=== PATIENT | female | born 1955 | race Hispanic/Latino ===

== ENCOUNTER 2018-12-27 10:27 | Emergency (ER) | payer SELFPAY ==
[2018-12-27] MEDS ORDERED: HYDROcodone/Acetaminophen 5/325 mg Tablet ONE (11:36)
[2018-12-27] MEDS ORDERED: Morphine 4 MG/ML VIAL ONE (12:52)
--- NOTE | 2018-12-27 13:09 | RAD ---
LEFT SHOULDER TWO VIEWS: HISTORY: Injury with pain. FINDINGS: There is an anterior shoulder dislocation. The AC joint is normally aligned. No definite fracture i s apparent, although the humeral head is not well evaluated. Recommend repeat shoulder views after r eduction. POS: [facility]
--- NOTE | 2018-12-27 13:27 | RAD ---
LEFT SHOULDER 1 VIEW: Date: 12/27/18 HISTORY: Injury from a mechanical fall. Post reduction attempt. COMPARISON: Exam done earlier today, 12/27/18. FINDINGS: The previously noted anterior subcoracoid dislocation has not been reduced. IMPRESSION: Persistent anterior subcoracoid glenohumeral joint dislocation. POS: [facility]
[2018-12-27] MEDS ORDERED: Fentanyl 100 MCG/2 ML VIAL ONE (13:52)
[2018-12-27] MEDS ORDERED: Naloxone HCl 0.4 mg/ml Vial ONE (14:13)
--- NOTE | 2018-12-27 14:33 | RAD ---
LEFT SHOULDER 2 VIEWS: Date: 12/27/18 HISTORY: Post reduction. FINDINGS: Anterior shoulder dislocation persists. AC joint is normally aligned. IMPRESSION: Persistent anterior shoulder dislocation. POS: [facility]
--- NOTE | 2018-12-27 14:49 | RAD ---
2 VIEWS LEFT SHOULDER: Date: 12/27/18 COMPARISON: 12/27/18 HISTORY: Reduction of shoulder dislocation. FINDINGS: 2 views of the left shoulder show interval reduction of the previously seen shoulder dislocation. No fracture is seen. IMPRESSION: Reduction of shoulder dislocation. POS: [facility]
--- NOTE | 2018-12-27 17:38 | CON ---
DATE OF CONSULTATION: 12/27/2018 REQUESTING PHYSICIAN: Dr. Young. PRINCIPAL DIAGNOSIS: Left anterior shoulder dislocation. HISTORY OF PRESENT ILLNESS: The patient is a 63-year-old right-hand dominant lady, who presented to the emergency room earlier on the 27 of December with a complaint of left shoulder pain. She is accompanied by family. They report that she sustained a fall at approximately 8 o'clock in the morning, dislocating her left shoulder. Of note, the patient has a prior history of left shoulder dislocation approximately 5 years ago. Upon presentation in the emergency room, x-rays were obtained, that showed an anterior inferior shoulder dislocation. The patient was sedated with fentanyl. An attempt to closed reduction was performed in the emergency room; however, this proved to be unsuccessful, and as such, Orthopedic consultation requested. PAST MEDICAL HISTORY: Remarkable for; 1. Hypertension. 2. Diabetes. 3. Hyperlipidemia. 4. Hypothyroidism. PAST SURGICAL HISTORY: 1. Left knee surgery. 2. Renal stone. MEDICATIONS: Include; 1. Lisinopril. 2. Omeprazole. 3. Simvastatin. 4. Meloxicam. 5. Metformin. 6. Levothyroxine. 7. Metoprolol. ALLERGIES: NONE KNOWN. SOCIAL HISTORY: The patient denies alcohol, drug use, and has no history of tobacco use. REVIEW OF SYSTEMS: No recent fevers, chills, or sweats. No chest pain or shortness of breath. She denies numbness or tingling in this left upper extremity. PHYSICAL EXAMINATION: VITAL SIGNS: Temperature of 98, heart rate of 88, respiratory rate of 16, blood pressure 177/85. GENERAL: The patient is found to be mildly sedated, sitting up in her [facility] in the emergency room at [facility]. MUSCULOSKELETAL: She is able to wiggle the fingers on her left hand and has normal sensation in the radial, median, ulnar, and axillary distribution. The hand, wrist, and elbow appear atraumatic. The shoulder shows an obvious anterior dislocation clinically with very limited range of motion and pain with any attempts of motion. The contralateral upper extremity is atraumatic. X-RAYS: Pre and post reduction x-rays of the left shoulder show a glenohumeral joint with continued anterior inferior dislocation. PROCEDURE NOTE: The patient was still under the effects of the most recent dose of fentanyl when I arrived at bedside. I applied just gentle longitudinal traction while talking to the patient. This resulted in disimpaction of the humeral head, could be palpated. With relaxation of the traction, the shoulder reduced. She was then placed in a sling and a true AP and transscapular Y x-ray of the shoulder was obtained, that showed anatomic reduction of this extremity. ASSESSMENT: Status post left shoulder dislocation, now with successful reduction in the emergency room. PLAN: The patient will be kept in a sling. I would like her to follow up with our orthopedic shoulder subspecialist for evaluation and to discuss whether any surgical intervention is appropriate given that this has been her 2nd dislocation. She appears comfortable with our discussion and plan. Disposition will be left to the emergency room physician. Job ID: [id number]
--- NOTE | 2018-12-29 13:25 | EKG ---
Test Reason : Blood Pressure : / mmHG Vent. Rate : 082 BPM Atrial Rate : 082 BPM P-R Int : 180 ms QRS Dur : 072 ms QT Int : 366 ms P-R-T Axes : 032 035 071 degrees QTc Int : 427 ms Normal sinus rhythm Normal ECG Confirmed by JULIA Carrillo, SOCRATES ([id number]), loan expeditor VAL MATTHEWS ([id number]) on 12/29/2018 1:24:28 PM Referred By: JULIA Confirmed By:SOCRATES DUMONT M.D.
== END 2018-12-27 14:59 | disposition home or self-care (01) ==
LOC: ERS 10:27
DX: S43.004A Unspecified dislocation of right shoulder joint, initial encounter (principal); I10 Essential (primary) hypertension; E11.9 Type 2 diabetes mellitus without complications; E78.5 Hyperlipidemia, unspecified; E03.9 Hypothyroidism, unspecified; Z79.899 Other long term (current) drug therapy; Z79.84 Long term (current) use of oral hypoglycemic drugs; W18.30XA Fall on same level, unspecified, initial encounter
CPT/HCPCS: 23650; 36416; 93005; 96361; 96374; 96375; J2270; J2310; J3010

== ENCOUNTER 2019-04-19 06:47 | Emergency (ER) | payer OTHER, SELFPAY ==
--- NOTE | 2019-04-19 08:44 | RAD ---
THREE VIEWS LEFT SHOULDER: INDICATION: Dislocation, pain. COMPARISON: 12/27/2018. FINDINGS: There is heterotopic density interposed between the acromion and the humeral head. Humeral head is h igh-riding. There is osteoarthritis. Overall alignment of the shoulder is similar-appearing. IMPRESSION: Grossly stable exam. Heterotopic density, corticated, is interposed between the acromion and the khushi ral head which is high riding. POS: [facility]
== END 2019-04-19 07:28 | disposition home or self-care (01) ==
LOC: ERS 06:47
DX: S43.005A Unspecified dislocation of left shoulder joint, initial encounter (principal); I10 Essential (primary) hypertension; E11.9 Type 2 diabetes mellitus without complications; E78.5 Hyperlipidemia, unspecified; E03.9 Hypothyroidism, unspecified; Z79.899 Other long term (current) drug therapy; Z79.84 Long term (current) use of oral hypoglycemic drugs; X50.9XXA Other and unspecified overexertion or strenuous movements or postures, initial encounter

== ENCOUNTER 2020-09-27 16:41 | Inpatient (IN) | payer SELFPAY ==
[~2020-09-27 16:41] MED LIST: Iopamidol-370 76% 500 ML 1 ML ONE
[2020-09-27 17:59] LABS: #Basophils 0.1 thou/uL (0.0-0.2); #Eosinphils 0.2 thou/uL (0.0-0.7); #Lymphocytes 2.7 thou/uL (1.20-3.40); #Monocytes 1.2 thou/uL (0.11-0.59); #Neutrophils 11.4 thou/uL (1.40-6.50); %Basophils 0.3 % (0.0-1.0); %Eosinophils 1.4 % (0.0-10.0); %Lymphocytes 17.6 % (21.0-51.0); %Monocytes 7.6 % (0.0-10.0); %Neutrophils 73.1 % (42.0-75.0); Hemoglobin 13.1 g/dL (12.0-16.0); Mean Corpuscular HGB CONC 32.5 g/dL (32.0-36.0); Mean Corpuscular Volume 89.3 fL (78.0-98.0); Mean Platelet Volume 8.2 fL (7.4-10.4); Platelet Count 317 thou/uL (130-400); RBC Distribution Width 13.7 % (11.5-14.5); White Blood Cell (WBC) Count 15.6 thou/uL (4.8-10.8)
[2020-09-27 18:14] LABS: Bilirubin Small (Negative); Blood, Urine Trace (Negative); Glucose, Urine (Dipstick) Negative (Negative); Ketone, Urine Trace mg/dL (Negative); Leukocyte Negative (Negative); Nitrite Negative (Negative); Protein, Urine (Dipstick) 30 mg/dL (Neg-Trace); pH, Urine 5.5 (5.0-9.0)
[2020-09-27 18:15] LABS: Clarity Hazy (Clear)
[2020-09-27 18:16] LABS: Specific Gravity, Urine 1.028 (1.002-1.036)
[2020-09-27 18:17] LABS: Bacteria/HPF 2+ HPF (None Seen); RBC/HPF None Seen HPF (0-3); WBC/HPF 0-3 HPF (0-3)
[2020-09-27 18:25] LABS: ALT (SGPT) 27 U/L (8-55); AST (SGOT) 25 U/L (5-34); Albumin 3.7 g/dL (3.4-4.8); Alkaline Phosphatase 128 U/L (40-110); Anion Gap 15 mmol/L (10-20); BUN (Urea Nitrogen) 12 mg/dL (9.8-20.1); Bilirubin, Total 0.4 mg/dL (0.2-1.2); Calc. Creatinine Clearance 0 mL/min (70-130); Calcium 8.4 mg/dL (7.8-10.44); Carbon Dioxide 22 mmol/L (23-31); Chloride 106 mmol/L (98-107); Globulin 4.2 g/dL (2.4-3.5); Glucose 117 mg/dL (80-115); Lipase 26 U/L (8-78); Potassium 3.7 mmol/L (3.5-5.1); Protein, Total 7.9 g/dL (5.8-8.1); Sodium 139 mmol/L (136-145)
[2020-09-27] MEDS ORDERED: Morphine 4 MG/ML VIAL ONE (18:54)
[2020-09-27] MEDS ORDERED: Ondansetron PF 4 MG/2 ML Vial ONE (18:54)
[2020-09-27] MEDS ORDERED: Ondansetron PF 4 MG/2 ML Vial IVP PRN (20:37)
[2020-09-27] MEDS ORDERED: Ondansetron ODT 4 MG TAB PO PRN (20:37)
[2020-09-27] MEDS ORDERED: Acetaminophen 325 MG TAB PO PRN (20:37)
[2020-09-27] MEDS ORDERED: HYDROcodone/Acetaminophen 5/325 mg Tablet PO PRN (20:37)
[2020-09-27] MEDS ORDERED: Morphine 2 MG/ML VIAL SLOW IVP PRN (22:38)
[2020-09-27 23:09] VITALS: BMI 56.7
[2020-09-27] MEDS: Enoxaparin Sodium 40 MG/0.4 ML SYRINGE SC SCH (23:11)
[2020-09-28] MEDS ORDERED: Temazepam 15 MG CAP PO PRN (02:15)
[2020-09-28 07:13] LABS: Anion Gap 18 mmol/L (10-20); BUN (Urea Nitrogen) 11 mg/dL (9.8-20.1); Calc. Creatinine Clearance 159 mL/min (70-130); Calcium 8.4 mg/dL (7.8-10.44); Carbon Dioxide 19 mmol/L (23-31); Chloride 105 mmol/L (98-107); Glucose 119 mg/dL (80-115); Sodium 138 mmol/L (136-145)
[2020-09-28 07:17] LABS: #Eosinphils 0.2 thou/uL (0.0-0.7); #Lymphocytes 2.6 thou/uL (1.20-3.40); #Neutrophils 8.4 thou/uL (1.40-6.50); %Basophils 0.3 % (0.0-1.0); %Eosinophils 1.5 % (0.0-10.0); %Lymphocytes 21.6 % (21.0-51.0); %Monocytes 8.1 % (0.0-10.0); %Neutrophils 68.5 % (42.0-75.0); Hemoglobin 11.8 g/dL (12.0-16.0); Mean Corpuscular HGB CONC 31.4 g/dL (32.0-36.0); Mean Corpuscular Hemoglobin 28.3 pg (27.0-31.0); Mean Corpuscular Volume 89.9 fL (78.0-98.0); Mean Platelet Volume 8.7 fL (7.4-10.4); Platelet Count 301 thou/uL (130-400); RBC Distribution Width 13.8 % (11.5-14.5); Red Blood Cell (RBC) Count 4.18 mill/uL (4.20-5.40); White Blood Cell (WBC) Count 12.2 thou/uL (4.8-10.8)
[2020-09-28] MEDS: Enoxaparin Sodium 40 MG/0.4 ML SYRINGE SC SCH ×2 (08:37→21:11)
[2020-09-28] MEDS ORDERED: Iopamidol-370 76% 500 ML 1 ML ONE (14:43)
[2020-09-28] MEDS: Atorvastatin Calcium 40 MG TAB PO SCH (21:19)
[2020-09-29] MEDS: Levothyroxine Sodium 75 MCG TAB PO SCH (05:21)
[2020-09-29 06:53] LABS: Cardiac Risk 4.1 (Less than 4.5)
[2020-09-29] MEDS: Aspirin Chewable 81 MG TAB PO SCH (07:50)
[2020-09-29] MEDS: Metoprolol Tartrate 25 MG TAB PO SCH ×2 (07:52→20:16)
[2020-09-29] MEDS: Enoxaparin Sodium 40 MG/0.4 ML SYRINGE SC SCH (07:55)
[2020-09-29] MEDS: Enoxaparin Sodium 100 MG/ML SYRINGE SC SCH ×2 (09:36→20:16)
[2020-09-29] MEDS: Simvastatin 10 MG TAB PO SCH (20:15)
[2020-09-29] MEDS: Atorvastatin Calcium 40 MG TAB PO SCH (20:16)
[2020-09-30] MEDS: Metoprolol Tartrate 25 MG TAB PO SCH ×2 (05:58→20:26)
[2020-09-30] MEDS: Levothyroxine Sodium 75 MCG TAB PO SCH (05:58)
[2020-09-30] MEDS ORDERED: PROPOFOL 200 MG/20 ML VIAL ONE (08:07)
[2020-09-30] MEDS ORDERED: Lisinopril 20 MG TAB PO SCH (09:00)
[2020-09-30] MEDS: Aspirin Chewable 81 MG TAB PO SCH (09:49)
[2020-09-30] MEDS: Enoxaparin Sodium 100 MG/ML SYRINGE SC SCH ×2 (09:51→20:27)
[2020-09-30 20:21] VITALS: TEMP 98.5
[2020-09-30] MEDS: Atorvastatin Calcium 40 MG TAB PO SCH (20:26)
[2020-09-30] MEDS: Simvastatin 10 MG TAB PO SCH (20:27)
[2020-09-30 22:37] VITALS: BP 140/82
== END 2020-09-30 22:37 | disposition short-term general hospital (02) | DRG 392 ==
LOC: ERS 16:41 → T4-B 20:28
PROVIDERS: ADMIT Student in an Organized Health Care Education/Training Program; ATTEND Hospitalist
PROC: 0DJ08ZZ Inspection of Upper Intestinal Tract, Via Natural or Artificial Opening Endoscopic (ICD-10-PCS; principal; 2020-09-30)
DX: I77.4 Celiac artery compression syndrome (principal); Z68.43 Body mass index [BMI] 50.0-59.9, adult; K55.1 Chronic vascular disorders of intestine; I10 Essential (primary) hypertension; E11.9 Type 2 diabetes mellitus without complications; E03.9 Hypothyroidism, unspecified; E78.5 Hyperlipidemia, unspecified; D72.829 Elevated white blood cell count, unspecified; E66.01 Morbid (severe) obesity due to excess calories; Z20.822 Contact with and (suspected) exposure to COVID-19; G83.9 Paralytic syndrome, unspecified; Z79.84 Long term (current) use of oral hypoglycemic drugs
CPT/HCPCS: 36415; 36416; 51701; 74174; 74177; 80048; 80053; 80061; 81003; 81015; 83605; 83690; 84484; 85025; 93005; 96374; 96375; J1650; J2270; J2405; J2704; Q9967

== ENCOUNTER 2022-04-03 00:15 | Emergency (ER) | payer MEDICARE ==
[2022-04-03] MEDS ORDERED: Ondansetron PF 4 MG/2 ML Vial ONE (00:35)
[2022-04-03] MEDS ORDERED: Fentanyl 100 MCG/2 ML VIAL ONE ×2 (00:35→01:33)
[2022-04-03] MEDS ORDERED: PROPOFOL 20 ML ONE (01:33)
== END 2022-04-03 03:20 | disposition home or self-care (01) ==
LOC: ERS 00:15
DX: S43.014A Anterior dislocation of right humerus, initial encounter (principal); E11.9 Type 2 diabetes mellitus without complications; E03.9 Hypothyroidism, unspecified; E78.5 Hyperlipidemia, unspecified; I10 Essential (primary) hypertension; W19.XXXA Unspecified fall, initial encounter
CPT/HCPCS: 23650; 70450; 71045; 72125; 96374; 96375; 96376; 99152; 99153; J2405; J2704; J3010

== ENCOUNTER 2025-04-11 06:26 | Inpatient (IN) | payer MEDICARE ==
[2025-04-11 07:19] VITALS: BMI 52.7
[2025-04-11] MEDS ORDERED: Acetaminophen 325 MG TAB PO PRN (07:51)
[2025-04-11] MEDS: Aspirin Chewable 81 MG TAB PO SCH (08:50)
[2025-04-11] MEDS: Cholecalciferol 1,000 UNITS (25 MCG) TAB PO SCH (08:50)
[2025-04-11] MEDS: Lisinopril 20 MG TAB PO SCH (08:50)
[2025-04-11] MEDS: Pantoprazole 40 MG DR.TAB PO SCH (08:50)
[2025-04-11] MEDS: predniSONE 20 MG TAB PO SCH (08:51)
[2025-04-11] MEDS: Enoxaparin 40 MG (0.4 mL) SYRINGE SC SCH (08:51)
[2025-04-11] MEDS ORDERED: Glucagon 1 MG/ML KIT IM PRN (12:20)
[2025-04-11] MEDS ORDERED: Dextrose 50% Abboject 50 ML SYRINGE SLOW IVP PRN (12:20)
[2025-04-11] MEDS: metFORMIN 500 MG TAB PO SCH (16:23)
[2025-04-11] MEDS: Mometasone 100 MCG/Formoterol 5 MCG 120 PUFF INHALER INH SCH (18:41)
[2025-04-12 04:13] LABS: Hematocrit 40.0 % (36.0-47.0); Hemoglobin 11.8 g/dL (12.0-16.0); Mean Corpuscular Hemoglobin 27.2 pg (27.0-31.0); Mean Corpuscular Volume 92.2 fL (78.0-98.0); Platelet Count 236 10x3/uL (130-400); Red Blood Cell (RBC) Count 4.34 mill/uL (4.20-5.40); White Blood Cell (WBC) Count 4.79 10x3/uL (4.8-10.8)
[2025-04-12 04:23] LABS: ALT (SGPT) 11 U/L (Less than 34); AST (SGOT) 20 U/L (11-34); Albumin 2.9 g/dL (3.1-4.5); Alkaline Phosphatase 81 U/L (40-110); Anion Gap 13 mmol/L (10-20); BUN (Urea Nitrogen) 11 mg/dL (9.8-20.1); Bilirubin, Total 0.2 mg/dL (0.3-1.2); Calc. Creatinine Clearance 133 mL/min (70-130); Calcium 8.1 mg/dL (7.8-10.44); Carbon Dioxide 32 mmol/L (23-31); Chloride 100 mmol/L (98-107); Globulin 4.0 g/dL (2.4-3.5); Glucose 126 mg/dL (80-115); Potassium 4.0 mmol/L (3.5-5.1); Sodium 141 mmol/L (136-145)
[2025-04-12 04:50] LABS: Platelet Adequacy Comment Platelets Normal; Smudge Cells 10.8 %
[2025-04-12] MEDS: predniSONE 20 MG TAB PO SCH (08:26)
[2025-04-12] MEDS: Benzocaine/Menthol 1 LOZ LOZ PO PRN (21:45)
[2025-04-13 04:40] LABS: #Basophils Less than 0.03 10x3/uL (0.0-0.2); #Eosinophils Less than 0.03 10x3/uL (0.0-0.7); #Monocytes 0.68 10x3/uL (0.11-0.59); #Neutrophils 4.54 10x3/uL (1.40-6.50); %Basophils 0.1 % (0.0-1.0); %Eosinophils 0.1 % (0.0-10.0); %Lymphocytes 29.1 % (21.0-51.0); %Monocytes 9.2 % (0.0-10.0); %Neutrophils 61.1 % (42.0-75.0); Hematocrit 38.6 % (36.0-47.0); Hemoglobin 11.7 g/dL (12.0-16.0); Mean Corpuscular Hemoglobin 27.7 pg (27.0-31.0); Mean Corpuscular Volume 91.3 fL (78.0-98.0); Platelet Count 236 10x3/uL (130-400); Red Blood Cell (RBC) Count 4.23 mill/uL (4.20-5.40); White Blood Cell (WBC) Count 7.43 10x3/uL (4.8-10.8)
[2025-04-13 05:01] LABS: ALT (SGPT) 17 U/L (Less than 34); AST (SGOT) 23 U/L (11-34); Albumin 2.9 g/dL (3.1-4.5); Alkaline Phosphatase 69 U/L (40-110); Anion Gap 13 mmol/L (10-20); BUN (Urea Nitrogen) 17 mg/dL (9.8-20.1); Bilirubin, Total 0.2 mg/dL (0.3-1.2); Calc. Creatinine Clearance 124 mL/min (70-130); Calcium 8.1 mg/dL (7.8-10.44); Carbon Dioxide 33 mmol/L (23-31); Chloride 101 mmol/L (98-107); Globulin 3.7 g/dL (2.4-3.5); Glucose 108 mg/dL (80-115); Potassium 4.2 mmol/L (3.5-5.1); Sodium 143 mmol/L (136-145)
[2025-04-13 08:24] VITALS: TEMP 97.8
[2025-04-13 11:29] VITALS: BP 149/70
== END 2025-04-13 13:01 | disposition home or self-care (01) | DRG 189 ==
LOC: PCU 06:26 → INTOOBSV 06:26 → OBSVTOIN 04-13 08:27
PROVIDERS: ADMIT Family Medicine; ATTEND Family Medicine
DX: J96.01 Acute respiratory failure with hypoxia (principal); J45.901 Unspecified asthma with (acute) exacerbation; E87.29 Other acidosis; I10 Essential (primary) hypertension; E78.5 Hyperlipidemia, unspecified; E11.9 Type 2 diabetes mellitus without complications; E03.9 Hypothyroidism, unspecified; Z79.890 Hormone replacement therapy; Z79.84 Long term (current) use of oral hypoglycemic drugs; Z79.51 Long term (current) use of inhaled steroids; Z79.899 Other long term (current) drug therapy; Z98.890 Other specified postprocedural states; Z90.710 Acquired absence of both cervix and uterus; Z90.49 Acquired absence of other specified parts of digestive tract; R05.1 Acute cough
CPT/HCPCS: 36415; 36416; 71046; 80053; 85025; 87081; 87086; 87430; 96372; G0378; J1650; J1815; J7512